=== PATIENT | male | born 1985 | race Caucasian/White ===

== ENCOUNTER 2023-05-27 19:58 | Emergency (ER) | payer MEDICAID, SELFPAY ==
[~2023-05-27 19:58] MED LIST: Iopamidol 300 61% 100 ML VIAL FS ONE
[2023-05-27 22:16] LABS: Bilirubin Neg (Negative); Blood, Urine Negative (Negative); Clarity Clear (Clear); Glucose, Urine (Dipstick) Normal (Negative); Ketone, Urine Negative (Negative); Leukocyte Negative (Negative); Nitrite Negative (Negative); Protein, Urine (Dipstick) Negative (Neg-Trace); Specific Gravity, Urine 1.025 (1.005-1.030); Urobilinogen Normal mg/dL (Less than 2)
[2023-05-27 22:18] LABS: #Basophils 0.1 10x3/uL (0.0-0.2); #Eosinphils 0.2 10x3/uL (0.0-0.5); #Monocytes 0.9 10x3/uL (0.0-1.1); #Neutrophils 4.9 10x3/uL (1.5-8.4); %Basophils 0.8 % (0.0-2.0); %Eosinophils 2.5 % (0.0-6.0); %Lymphocytes 31.4 % (18.0-47.0); %Monocytes 10.4 % (0.0-10.0); %Neutrophils 54.6 % (40.0-75.0); Hemoglobin 16.1 g/dL (13.5-17.5); Mean Corpuscular Hemoglobin 30.1 pg (27.0-33.0); Mean Corpuscular Volume 86.1 fl (81.2-95.1); Mean Platelet Volume 9.5 fl (7.4-10.4); Platelet Count 306 10x3/uL (150-450); RBC Distribution Width 11.8 % (11.5-14.5); Red Blood Cell (RBC) Count 5.34 10x6/uL (4.32-5.72); White Blood Cell (WBC) Count 9.1 10x3/uL (3.5-10.5)
[2023-05-27 22:33] LABS: CAUTI Indications for Culture Pelvic or flank pain; RBC/HPF None Seen HPF (0-3); Squamous Epithelial None Seen HPF (0-3); WBC/HPF None Seen HPF (0-3)
[2023-05-27 22:34] LABS: ALT (SGPT) 46 U/L (8-55); AST (SGOT) 28 U/L (5-34); Albumin 3.7 g/dL (3.5-5.0); Alkaline Phosphatase 39 U/L (40-110); Anion Gap 12 mmol/L (10-20); BUN (Urea Nitrogen) 13 mg/dL (8.9-20.6); Bilirubin, Total 0.6 mg/dL (0.2-1.2); Calc. Creatinine Clearance 0 mL/min (70-130); Calcium 8.9 mg/dL (7.8-10.44); Carbon Dioxide 24 mmol/L (22-29); Chloride 108 mmol/L (98-107); Estimated GFR 95; Globulin 2.3 g/dL (2.4-3.5); Glucose 97 mg/dL (70-105); Lipase 55 U/L (8-78); Potassium 4.1 mmol/L (3.5-5.1); Sodium 140 mmol/L (136-145)
[2023-05-27 22:34] LABS: Bacteria/HPF None Seen HPF (None Seen); Urine Culture Reflex No No
== END 2023-05-28 00:03 | disposition home or self-care (01) ==
LOC: CSHERS 19:58
DX: R10.31 Right lower quadrant pain (principal); Z55.6 Problems related to health literacy
CPT/HCPCS: 74177; 80053; 81001; 83690; 85025; Q9967

== ENCOUNTER 2025-02-20 00:21 | Emergency (ER) | payer SELFPAY ==
[2025-02-20] MEDS ORDERED: Dexamethasone 10 MG/ML VIAL ONE (00:52)
[2025-02-20] MEDS ORDERED: diphenhydrAMINE 25 MG CAP ONE (00:53)
== END 2025-02-20 01:05 | disposition home or self-care (01) ==
LOC: CSHERS 00:21
DX: L23.7 Allergic contact dermatitis due to plants, except food (principal); F90.9 Attention-deficit hyperactivity disorder, unspecified type
CPT/HCPCS: 96372; 99282; J1100